=== PATIENT | female | born 1970 | race Caucasian/White ===

== ENCOUNTER 2016-10-02 22:36 | Emergency (ER) | payer SELFPAY ==
[~2016-10-02] VITALS: Ht 165.1 cm; Wt 68.2 kg
[2016-10-03] MEDS ORDERED: HALOPERIDOL LACTATE 5 MG/ML VIAL IM ONE (01:30)
[2016-10-03] MEDS ORDERED: LORazepam 2 MG/ML VIAL IM ONE (01:30)
[2016-10-03 05:09] VITALS: BP 129/75
== END 2016-10-03 05:12 | disposition home or self-care (01) ==
LOC: EMS 22:38
DX: F31.9 Bipolar disorder, unspecified (principal); G47.00 Insomnia, unspecified
CPT/HCPCS: 96372; 99285; J1630; J2060